=== PATIENT | male | born 1970 | race Caucasian/White ===

== ENCOUNTER → 2022-12-23 | Day surgery (SDC) | payer BC ==
[~2022-12-23] MED LIST: ATORVASTATIN CA10 MG PO; FENTANYL CITRATE/PF 100MCG/2 ML INJ ONE; HUMULIN 70100 UNIT/1 SC; LANTUS100 UNITS/ SC; METFORMIN HCL500 MG PO; MIDAZOLAM HCL 2 MG/2 ML VIAL ONE; OR PHACO EYE KIT ONE; PREOP PHACO EYE KIT ONE; ZESTRIL2.5 MG PO
[2022-12-23 10:05] VITALS: BP 142/79
== END | disposition home or self-care (01) ==
LOC: OR 07:16
PROVIDERS: ATTEND Ophthalmology
DX: H25.12 Age-related nuclear cataract, left eye (principal); Z79.4 Long term (current) use of insulin; Z79.899 Other long term (current) drug therapy
CPT/HCPCS: 36415; 66984; 82948; J2250; J3010; V2632